=== PATIENT | male | born 1960 | race Caucasian/White ===

== ENCOUNTER 2016-04-29 01:58 | Emergency (ER) | payer MEDICARE ==
[~2016-04-29] VITALS: Ht 177.8 cm; Wt 62.0 kg
[2016-04-29 02:01] VITALS: BP 135/64; PULSE 76; RESP 16; TEMP 98; O2SAT 96
[2016-04-29] MEDS ORDERED: BACT800T5 PO (02:42)
--- NOTE | 2016-04-29 02:43 | PD ---
HPI Chief Complaint: Bite or Sting Time Seen by Provider: 02:20 Travel History International Travel<30 days: No Contact w/Intl Traveler<30days: No Traveled to known affect area: No History of Present Illness HPI 55-year-old male arrives complaining of pain and swelling in the left leg. He states he was bit by a snake week ago. Onset gradual. Throbbing quality. Severity moderate. He's had no fever. PFSH Past Medical History Medical History: Denies Significant Hx Tetanus Vaccination: < 5 Years Influenza Vaccination: Yes Past Surgical History Other Surgery: Yes (RIGHT JAW) Social History Alcohol Use: No Tobacco Use: Yes (1 PPD) Substance Use: No Allergies-Medications (Allergen,Severity, Reaction): Coded Allergies: No Known Allergies (Unverified , 04/29/16) Reported Meds & Prescriptions Reported Meds & Active Scripts Active Bactrim DS (Sulfamethoxazole-Trimethoprim) 800-160 Mg Tab 1 Tab PO BID Review of Systems Except as stated in HPI: all other systems reviewed are Neg General / Constitutional: No: Fever, Chills Skin: Positive Lesions Physical Exam Narrative GENERAL: 55-year-old male WNWD asleep in room SKIN: Warm and dry. Approximately 5 cm area of erythema along the anterior left lower leg just proximal to the ankle mortise with about 1-1/2 center area of ulceration in the middle. No fluctuance. No necrosis. No crepitus. HEAD: Atraumatic. Normocephalic. EYES: Pupils equal and round. No scleral icterus. No injection or drainage. ENT: No nasal bleeding or discharge. Mucous membranes pink and moist. NECK: Trachea midline. No JVD. CARDIOVASCULAR: Regular rate and rhythm. RESPIRATORY: No accessory muscle use. Clear to auscultation. Breath sounds equal bilaterally. GASTROINTESTINAL: Abdomen soft, non-tender, nondistended. Hepatic and splenic margins not palpable. MUSCULOSKELETAL: Extremities without clubbing, cyanosis, or edema. No obvious deformities. Dorsalis pedis pulses intact bilaterally. NEUROLOGICAL: Awake and alert. No obvious cranial nerve deficits. Motor grossly within normal limits. Five out of 5 muscle strength in the arms and legs. Normal speech. PSYCHIATRIC: Appropriate mood and affect; insight and judgment normal. Data Data Last Documented VS Vital Signs Date Time Temp Pulse Resp B/P Pulse Ox O2 Delivery O2 Flow Rate FiO2 04/29/16 02:01 98.0 76 16 135/64 96 Orders Sulfamet-Trimeth Ds 800-160 Mg (Bactrim (04/29/16 02:45) Wound Culture And Gram Stain (04/29/16 02:44) MDM Medical Decision Making Medical Screen Exam Complete: Yes Emergency Medical Condition: Yes Differential Diagnosis Cellulitis, insect bite, abscess, snake bite Narrative Course Culture obtained. Bactrim DS x 10 days. Diagnosis Primary Impression: Bite Additional Impression: Cellulitis Qualified Code: L03.116 - Cellulitis of left lower extremity Referrals: Primary Care Physician call for appointment Additional Instructions: You have a choice when it comes to health care, and we are glad that you chose [facility]. Hopefully, we have met your expectations on today's visit. You are welcome to return to [facility] at any time, as we are committed to meeting the health care needs of our community. Med/Other Pt SpecificInfo: Prescription(s) given Scripts Sulfamethoxazole-Trimethoprim (Bactrim DS)800-160 Mg Tab1 Tab PO BID #20 TAB Ref 0 Prov:Dragan Marin MD 04/29/16 Disposition: DISCHARGE HOME Condition: Stable Dragan Marin MD Apr 29, 2016 02:43
[2016-04-29] MEDS ORDERED: SULFAMETHOXAZOLE-TRIMETHOPRIM DS 800-160 MG TAB PO ONE (02:45)
== END 2016-04-29 06:25 | disposition home or self-care (01) ==
LOC: NEPE 01:58
DX: L03.116 Cellulitis of left lower limb (principal); T63.001A Toxic effect of unspecified snake venom, accidental (unintentional), initial encounter; F17.200 Nicotine dependence, unspecified, uncomplicated
CPT/HCPCS: 99283